=== PATIENT | female | born 1970 | race Caucasian/White ===

== ENCOUNTER → 2021-09-13 | Outpatient (CLI) | payer BC ==
[2021-09-13 15:58] LABS: RHEUMATOID FACTOR QUANT < 10.0 IU/ML (<15.0); TOTAL PROTEIN 7.1 GM/DL (6.4-8.2)
[2021-09-13 16:05] LABS: VITAMIN B12 LEVEL 412 PG/ML (247-911)
[2021-09-13 16:06] LABS: FOLATE 6.8 NG/ML (>5.4)
[2021-09-14 11:36] LABS: DRVV SCREEN 40.3 SEC
[2021-09-14 11:46] LABS: PTT LUPUS TYPE ANTICOAG SCREEN 1.1 (0-1.2)
== END ==
LOC: M PLALAB 13:38
PROVIDERS: ATTEND Psychiatry & Neurology Neurology
DX: G62.9 Polyneuropathy, unspecified (principal); M62.838 Other muscle spasm